=== PATIENT | female | born 1990 | race African-American/Black ===

== ENCOUNTER → 2019-10-05 | Outpatient (CLI) | payer MEDICAID ==
--- NOTE | 2019-10-05 18:06 | RADIOLOGY REPORT (SQ) ---
EXAM DESCRIPTION: U/S [id number] TRNABD 1GES W/ODOP COMPLETED DATE/TIME: 10/05/2019 3:39 pm REASON FOR STUDY: Z34.81 ENCOUNTER FOR SUPRVSN OF NORMAL , FIRST TRIMESTER Z34.81 ENCOUNTE R FOR SUPRVSN OF NORMAL , FIRST TRIM COMPARISON: None. TECHNIQUE: Transvaginal static and realtime grayscale images acquired of the pelvis. Additional javed cted spectral and color Doppler images recorded. All images stored on PACs. CG: Not available. CLINICAL DATES: Unknown LIMITATIONS: None. FINDINGS: FETUS: Single Living intrauterine . ULTRASOUND EGA: 8 weeks 5 days ULTRASOUND ELISABET: 05/11/2020 EFW: Not applicable less than 20 weeks. CRL: 2.1 cm. FHR: 141 beats per minute. SURVEY: Too early to assess. AMNIOTIC FLUID: Adequate amount. PLACENTA: Not yet developed due to early gestation. SUBCHORIONIC BLEED: No SIZE OF BLEED: Not applicable. UTERUS: No masses. No anomalies. CERVICAL LENGTH: 3.5 cm. Closed. RIGHT ADNEXA: Normal ovary with normal vascular flow. 3.8 x 2.4 x 2.2 cm No adnexal free fluid. No adnexal masses. LEFT ADNEXA: Normal ovary with normal vascular flow. 3 x 2.3 x 2.1 cm No adnexal free fluid. No adnexal masses. FREE FLUID: None. OTHER: No other significant finding. IMPRESSION: LIVING INTRAUTERINE . EGA 8 weeks 5 days appear Trimester of : First trimester - 0 to 13 weeks. TECHNICAL DOCUMENTATION: JOB ID: [id number]- All Rights Reserved rev-03/17 Reading location - IP/workstation name: [email or web address]
== END ==
LOC: RAD 14:59
PROVIDERS: ATTEND Midwife
DX: Z34.81 Encounter for supervision of other normal pregnancy, first trimester (principal)
CPT/HCPCS: 76801

== ENCOUNTER 2019-11-04 08:48 | Emergency (ER) | payer MEDICAID ==
--- NOTE | 2019-11-04 09:14 | ER Document Report ---
ED Medical Screen (RME) - General Chief Complaint: Abdominal Pain Stated Complaint: LOWER ABDOMINAL PAIN Time Seen by Provider: 11/04/19 09:09 Primary Care Provider: CHAD RUTLEDGE CNM [Primary Care Provider] - Follow up as needed Mode of Arrival: Ambulatory Information source: Patient Notes: Otherwise healthy 29-year-old female G2, P1 presents emergency department with abdominal pain in the setting of . Patient reports she is 13 weeks , states she has been having low abdominal pain that radiates down into the vaginal area since last night. Denies any dysuria, vaginal bleeding or abnormal discharge. I have greeted and performed a rapid initial assessment of this patient. A comprehensive ED assessment and evaluation of the patient, analysis of test results and completion of the medical decision making process will be conducted by additional ED providers. I have specifically instructed the patient or family members with the patient to immediately return to any nursing staff should anything change in the patient's condition or with their chief complaint. TRAVEL OUTSIDE OF THE [place] IN LAST 30 DAYS: No - Related Data Allergies/Adverse Reactions: No Known Allergies Allergy (Verified 11/04/19 09:02) Past Medical History - Social History Chew tobacco use (# tins/day): No Frequency of alcohol use: None Drug Abuse: None Physical Exam - Vital signs Vitals: Temp Pulse Resp BP Pulse Ox 98.9 F 93 16 120/60 99 11/04/19 08:52 11/04/19 08:52 11/04/19 08:52 11/04/19 08:52 11/04/19 08:52 Course - Vital Signs Vital signs: Temp Pulse Resp BP Pulse Ox 98.9 F 93 16 120/60 99 11/04/19 08:52 11/04/19 08:52 11/04/19 08:52 11/04/19 08:52 11/04/19 08:52 Doctor's Discharge - Discharge Referrals: CHAD RUTLEDGE CNM [Primary Care Provider] - Follow up as needed
[2019-11-04 10:16] LABS: ABSOLUTE EOSINOPHILS # (AUTO) 0.2 10^3/uL (0.0-0.6); ABSOLUTE LYMPHOCYTES (AUTO) 1.9 10^3/uL (0.5-4.7); ABSOLUTE NEUT (AUTO) 8.7 10^3/uL (1.7-8.2); BASOPHILS % (AUTO) 0.4 % (0-2); EOSINOPHILS % (AUTO) 1.5 % (0-6); HEMATOCRIT 39.8 % (36.0-47.0); HEMOGLOBIN 13.8 g/dL (12.0-15.5); LYMPHOCYTES % (AUTO) 16.1 % (13-45); MEAN CORPUSCULAR HEMOGLOBIN 32.1 pg (27.0-33.4); MEAN CORPUSCULAR HGB CONC 34.6 g/dL (32.0-36.0); MEAN CORPUSCULAR VOLUME 93 fl (80-97); MONOCYTES % (AUTO) 8.2 % (3-13); PLATELET COUNT 269 10^3/uL (150-450); RED BLOOD COUNT 4.29 10^6/uL (3.72-5.28); RED CELL DISTRIBUTION WIDTH 13.5 % (11.5-14.0); SEGMENTED NEUTROPHILS % (AUTO) 73.8 % (42-78); TOTAL CELLS COUNTED % (AUTO) 100 %; WHITE BLOOD COUNT 11.8 10^3/uL (4.0-10.5)
[2019-11-04 10:33] LABS: ALBUMIN 3.6 g/dL (3.5-5.0); ALKALINE PHOSPHATASE 35 U/L (38-126); ANION GAP 9 (5-19); APPEARANCE,URINE CLEAR; ASPARTATE AMINO TRANSFERASE 20 U/L (14-36); BILIRUBIN,DIRECT 0.2 mg/dL (0.0-0.4); BILIRUBIN,TOTAL 0.3 mg/dL (0.2-1.3); BILIRUBIN,URINE NEGATIVE (NEGATIVE); BLOOD UREA NITROGEN 9 mg/dL (7-20); CALCIUM 9.2 mg/dL (8.4-10.2); CARBON DIOXIDE 23 mmol/L (22-30); CHLORIDE 105 mmol/L (98-107); COLOR,URINE COLORLESS; GLUCOSE 82 mg/dL (75-110); GLUCOSE, URINE NEGATIVE (NEGATIVE); KETONES,URINE NEGATIVE (NEGATIVE); LEUKOCYTE ESTERASE,URINE NEGATIVE (NEGATIVE); NITRITE,URINE NEGATIVE (NEGATIVE); POTASSIUM 4.3 mmol/L (3.6-5.0); PROTEIN,URINE NEGATIVE (NEGATIVE); TOTAL PROTEIN 7.2 g/dL (6.3-8.2); URINE SPECIFIC GRAVITY 1.002; UROBILINOGEN,URINE NEGATIVE mg/dL (<2.0)
--- NOTE | 2019-11-04 10:33 | RADIOLOGY REPORT (SQ) ---
EXAM DESCRIPTION: U/S 1TRIMESTER/1GEST W/DOPPLER COMPLETED DATE/TIME: 11/04/2019 9:40 am REASON FOR STUDY: 13 wks preg, abd pain COMPARISON: Previous OB ultrasound 10/05/2019 TECHNIQUE: Trans abdominal static and realtime grayscale images acquired of the pelvis. Additional s elected spectral and color Doppler images recorded. All images stored on PACs. bHCG: Not available CLINICAL DATES: Last menses 08/05/2019 (due date 05/11/2020). LIMITATIONS: None. FINDINGS: FETUS: Single Living intrauterine . ULTRASOUND EGA: 12 weeks 6 days ULTRASOUND ELISABET: 05/12/2020 EFW: Not calculated CRL: 6.5 cm FHR: 162 beats per minute. SURVEY: Too early to assess AMNIOTIC FLUID: Adequate amount. PLACENTA: Not yet developed due to early gestation. SUBCHORIONIC BLEED: no SIZE OF BLEED: Not applicable. UTERUS: No masses. No anomalies. Uterus is 12 x 9 x 10 cm in size CERVICAL LENGTH: 3.8 cm Closed. RIGHT ADNEXA: Normal ovary with normal vascular flow. Right ovary 3 x 2.1 x 2 cm in size No adnexal free fluid. No adnexal masses. LEFT ADNEXA: Ovary not identified due to poor acoustical window. No adnexal free fluid. No adnexal masses. FREE FLUID: None. OTHER: No other significant finding. IMPRESSION: LIVING INTRAUTERINE . EGA 12 weeks 6 days Trimester of : First trimester - 0 to 13 weeks. TECHNICAL DOCUMENTATION: JOB ID: [id number] [employer]- All Rights Reserved -03/17 Reading location - IP/workstation name: [email or web address]
--- NOTE | 2019-11-04 11:32 | ER Document Report ---
ED GI/ - General Chief Complaint: Abdominal Pain Stated Complaint: LOWER ABDOMINAL PAIN Time Seen by Provider: 11/04/19 09:09 Primary Care Provider: CHAD RUTLEDGE CNM [NO LOCAL MD] - Follow up as needed Mode of Arrival: Ambulatory Notes: Patient is a 29-year-old female G2, P0 who presents to the emergency department with a chief complaint of lower abdominal pain. Patient reports last night she developed some lower abdominal pain that feels like a pressure. Patient reports that in the suprapubic region of her lower abdomen she does intermittently get a sharp pain that goes down to the vagina. Patient denies vaginal bleeding or vaginal discharge. 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 Patient reports she was sexually active 2 days ago. Patient denies urinary symptoms, fever, nausea, vomiting or diarrhea. Patient reports that she is concerned as she does have a history of a miscarriage. 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 Patient reports she used to do physical therapy for this but has not done it recently as she is new to the area and since being . Patient reports she is about 13 months . TRAVEL OUTSIDE OF THE [place] IN LAST 30 DAYS: No - Related Data Allergies/Adverse Reactions: No Known Allergies Allergy (Verified 11/04/19 09:02) Past Medical History - General Information source: Patient - Social History Smoking Status: Unknown if Ever Smoked Chew tobacco use (# tins/day): No Frequency of alcohol use: None Drug Abuse: None Lives with: Family, Spouse/Significant other Family History: None Patient has suicidal ideation: No Patient has homicidal ideation: No - Past Medical History Cardiac Medical History: Reports: None Pulmonary Medical History: Reports: None EENT Medical History: Reports: None Neurological Medical History: Reports: None Endocrine Medical History: Reports: None Renal/ Medical History: Reports: None Malignancy Medical History: Reports: None GI Medical History: Reports: None Musculoskeletal Medical History: Reports None Skin Medical History: Reports None Psychiatric Medical History: Reports: None Traumatic Medical History: Reports: None Infectious Medical History: Reports: None Surgical Hx: Negative Review of Systems - Review of Systems Constitutional: No symptoms reported EENT: No symptoms reported Cardiovascular: No symptoms reported Respiratory: No symptoms reported Gastrointestinal: See HPI Genitourinary: No symptoms reported Female Genitourinary: No symptoms reported Musculoskeletal: No symptoms reported Skin: No symptoms reported Hematologic/Lymphatic: No symptoms reported Neurological/Psychological: No symptoms reported Physical Exam - Vital signs Vitals: Temp Pulse Resp BP Pulse Ox 98.9 F 93 16 120/60 99 11/04/19 08:52 11/04/19 08:52 11/04/19 08:52 11/04/19 08:52 11/04/19 08:52 Interpretation: Normal - Notes Notes: GENERAL: Well-appearing, well-nourished and in no acute distress. HEAD: Atraumatic, normocephalic. EYES: Pupils equal round and reactive to light, extraocular movements intact, sclera anicteric, conjunctiva are normal. ENT: Nares patent, oropharynx clear without exudates. Moist mucous membranes. NECK: Normal range of motion, supple without lymphadenopathy or JVD. LUNGS: Breath sounds clear to auscultation bilaterally and equal. No wheezes rales or rhonchi. HEART: Regular rate and rhythm without murmurs, rubs or gallops. ABDOMEN: Soft, generalized lower abdominal pain with palpation - slightly worse over suprapubic area and left lower quadrant, no rebound, normoactive bowel sounds. No guarding. No masses appreciated. BACK: No cervical, thoracic, lumbar midline tenderness. No saddle anesthesia, normal distal neurovascular exam. No CVA tenderness GENITOURINARY: Deferred. EXTREMITIES: Normal range of motion, no pitting or edema. No clubbing or cyanosis. NEUROLOGICAL: Cranial nerves II through XII grossly intact. Normal speech, normal gait. PSYCH: Normal mood, normal affect. SKIN: Warm, Dry, normal turgor, no rashes or lesions noted. Course - Re-evaluation Re-evalutation: 11/04/19 11:31 Upon initial assessment patient is resting comfortably on stretcher no acute distress. Patient reports she is not taking anything for her discomfort including Tylenol as she is nervous from a previous miscarriage. Patient reports she was sexually active 2 days ago and developed some lower abdominal pressure with intermittent sharp pain into the vagina last night. Patient denies vaginal discharge or bleeding. Patient reports she does follow-up with the health department for her BINITROTOLUENE OPERATOR care. Patient is not tachycardic, hypotensive or febrile. Patient is nontoxic- appearing. Patient did have generalized lower abdominal tenderness with palpation slightly worse in the suprapubic and left lower quadrant area. There was no rebound. No facial grimacing or other signs of discomfort. Patient's blood work was reassuring urinalysis unremarkable. I do not believe a pelvic examination is necessary as the patient does not report any vaginal bleeding or discharge. - Vital Signs Vital signs: Temp Pulse Resp BP Pulse Ox 98.9 F 93 16 120/60 99 11/04/19 08:52 11/04/19 08:52 11/04/19 08:52 11/04/19 08:52 11/04/19 08:52 - Laboratory Result Diagrams: 11/04/19 10:06 11/04/19 10:06 Laboratory results interpreted by me: 11/04/19 11/04/19 10:06 10:06 WBC 11.8 H Absolute Neuts (auto) 8.7 H Alkaline Phosphatase 35 L Beta HCG, Quant 79585.00 H 11/04/19 11:30 Patient does not have a significant leukocytosis. Patient does not have an anemia, alteration electrolytes or kidney function. Patient's urinalysis unremarkable without signs of infection to include leukocytes or nitrites. Laboratory 11/04/19 11/04/19 11/04/19 10:06 10:06 10:06 WBC 11.8 H RBC 4.29 Hgb 13.8 Hct 39.8 MCV 93 MCH 32.1 MCHC 34.6 RDW 13.5 Plt Count 269 Lymph % (Auto) 16.1 [place] % (Auto) 8.2 Eos % (Auto) 1.5 Baso % (Auto) 0.4 Absolute Neuts (auto) 8.7 H Absolute Lymphs (auto) 1.9 Absolute Monos (auto) 1.0 Absolute Eos (auto) 0.2 Absolute Basos (auto) 0.0 Seg Neutrophils % 73.8 Sodium 137.1 Potassium 4.3 Chloride 105 Carbon Dioxide 23 Anion Gap 9 BUN 9 Creatinine 0.64 Est GFR ( Amer) > 60 Est GFR (MDRD) Non-Af > 60 Glucose 82 Calcium 9.2 Total Bilirubin 0.3 Direct Bilirubin 0.2 Neonat Total Bilirubin Not Reportable Neonat Direct Bilirubin Not Reportable Neonat Indirect Bili Not Reportable AST 20 ALT 12 Alkaline Phosphatase 35 L Total Protein 7.2 Albumin 3.6 Beta HCG, Quant 80264.00 H Total Beta HCG POSITIVE Urine Color COLORLESS Urine Appearance CLEAR Urine pH 6.0 Ur Specific [place] 1.002 Urine Protein NEGATIVE Urine Glucose (UA) NEGATIVE Urine Ketones NEGATIVE Urine Blood NEGATIVE Urine Nitrite NEGATIVE Urine Bilirubin NEGATIVE Urine Urobilinogen NEGATIVE Ur Leukocyte Esterase NEGATIVE Urine WBC (Auto) 0 Urine RBC (Auto) 0 Urine Bacteria (Auto) TRACE Squamous Epi Cells Auto 1 Urine Mucus (Auto) RARE Urine Ascorbic Acid NEGATIVE Discharge - Discharge Clinical Impression: Vaginal pain, Pelvic pain Qualifiers: Weeks of gestation: 12 weeks Qualified Code(s): Z3A.12 - 12 weeks gestation of Condition: Stable Disposition: HOME, SELF-CARE Additional Instructions: *Today was seen in the emergency department for vaginal and lower abdominal pain. We did obtain an ultrasound which did show an intrauterine with an estimated gestational age of 12 weeks and 6 days. The heart rate was 162. Your cervix is closed. Your blood work was also reassuring which did not show any signs of infection or a urinary tract infection. I would follow-up with the health department as previously scheduled. Please take Tylenol as needed for pain. As discussed I would seek clearance from your BINITROTOLUENE OPERATOR prior to initiating a physical therapy for your hypermobility of the pelvis. You can also consider using a warm pack to your lower back. Please return to the emergency department if you develop vaginal bleeding or discharge, fever, nausea, vomiting or diarrhea, abdominal pain that becomes localized area and is severe or any new or worsening symptoms. Please make sure that you are taking a multivitamin. Physical therapist in the [place] area: -[facility] [phone] -[facility] [phone] I would not initiate physical therapy until getting cleared by her BINITROTOLUENE OPERATOR. Abdominal Pain There are many causes of abdominal pain. Pain can mean a serious problem requiring surgery (such as appendicitis). It can also be an innocent problem that goes away on its own (such as a viral infection). Often, time must pass to determine the cause of pain. The physician does not feel that hospitalization is necessary, at present. Things may change within the next 24 hours. Call the doctor or come back for re-examination if any problems occur, such as: (1) Pain that becomes more severe, steady, or becomes concentrated in one specific area. Also, pain that is more severe with movement or coughing. (2) Vomiting that persists or becomes more frequent. (3) Blood in the vomitus, urine, or bowel movements. Blood in the stool may have a tarry or black appearance. (4) Shaking chills or fever greater than 100 degrees F. (5) The abdomen becomes more distended or swollen. (6) Bowel movements cease. (7) Failure to improve as expected. You are . care is best started as early in as possible. If you're unsure about continuing this , you should discuss this with your physician or with learning analyst at [facility]. You should take only medications approved by your physician. Acetaminophen can safely be taken for minor pains. As a rule, medication for chronic conditions such as asthma or seizures can safely be continued. You should discuss with the physician every medicine you take. Any regular exercise program can be continued. Talk to your physician, however, before engaging in competitive or demanding sports. Alcohol, smoking, and "street drugs" are dangerous to your baby. Cocaine is especially dangerous. Don't use any illicit drugs! Referrals: [facility] [Provider Group] - Follow up as needed
[2019-11-04 11:56] VITALS: BP 100/60
== END 2019-11-04 11:56 | disposition home or self-care (01) ==
LOC: ER 08:48
DX: O26.91 Pregnancy related conditions, unspecified, first trimester (principal); R10.30 Lower abdominal pain, unspecified; Z3A.12 12 weeks gestation of pregnancy
CPT/HCPCS: 36415; 76801; 80053; 81001; 84702; 85025; 93976; 99284